=== PATIENT | female | born 1935 | race African-American/Black ===

== ENCOUNTER 2019-06-23 21:03 | Observation (INO) ==
--- NOTE | 2019-06-23 21:35 | PROVIDER DOCUMENTATION ---
This chart was entered by Jessica Figueroa Scribe, acting as scribe for Roland Black MD. HPI-Neurological Disorder - General Chief Complaint: STROKE ALERT Stated Complaint: STROKE LIKE FEELING Time Seen by Provider: 06/23/19 21:19 Source: patient Allergies/Adverse Reactions: Patient Allergies Allergy/AdvReac Type Severity Reaction Status Date / Time No Known Allergies Allergy Verified 07/09/15 11:29 Home Medications: Home Medication List Medication Instructions Recorded Confirmed Last Taken Type Acetaminophen with Codeine 1 tab PO Q6-8H PRN PRN 04/26/15 11/17/17 Unknown History [Tylenol with Codeine #3] Hydrocodone/Ibuprofen 1 tab PO Q4-6H PRN PRN 04/26/15 11/17/17 Unknown History [Hydrocodone-Ibuprofen 7.5-200] Insulin Detemir [Levemir Flextouch] 18 units SQ HS 04/26/15 07/09/15 Unknown History Insulin Glargine,Hum.rec.anlog 18 units SQ BID 04/26/15 07/09/15 11/17/17 01:00 History [Lantus Solostar] LISINOpril [Prinivil] 40 mg PO DAILY 04/26/15 11/17/17 Unknown History Metoprolol Tartrate 25 mg PO BID 04/26/15 11/17/17 Unknown History Omeprazole 20 mg PO DAILY 04/26/15 11/17/17 Unknown History Amlodipine Besylate 1 tab PO DAILY 11/17/17 11/17/17 Unknown History Aspirin 1 tab PO DAILY 11/17/17 11/17/17 Unknown History Clonidine HCl 0.1 mg PO TID PRN #60 tablet 11/17/17 Unknown Rx PRAVAstatin [Pravachol] 1 tab PO DAILY 11/17/17 11/17/17 Unknown History Trazodone [Desyrel] 25 mg PO HS 11/17/17 11/17/17 Unknown History - History of Present Illness-Neuro Nature of Presenting Problem: PT IS AN 83 BF WITH HISTORY OF DIABETES PRESENTING W/FAMILY W/CC SUDDEN ONSET OF INABILTy TO TALK OR 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 SYMPTOMS RESOLVED ON ARRIVAL AND PT IS ALERT AND ORIENTED TO PERSON,PLACE, AND TIME. FOLLOWED BY DR. KILPATRICK.PATIENT IS NONSMOKER, NO ALCOHOL OR DRUG USE. CURRENT NIH SCORE OF 0. Severity: reports: moderate Onset/Duration: reports: just prior to arrival Timing: reports: still present Context: reports: impaired speech, other Character of Altered Mental Status: reports: N/A Any recent trauma/injury?: reports: none Character of Deficits: reports: impaired speech, decreased ability to walk New weakness or altered sensation location:: reports: RLE, LLE Cognitive Baseline: alert, oriented x3 Gait Baseline: walks without assistance Associated Symptoms: reports: weakness, other (RHINORRHEA) Review of Systems - Adult - REVIEW OF SYSTEMS - ADULT Constitutional: reports: no symptoms reported. denies: fever, fatique, night sweats Eyes: reports: no symptoms reported Ears, Nose, Mouth & Throat: reports: see HPI, sinus problem (RHINORRHEA). denies: ear discharge, ear pain, hearing loss Cardiovascular: reports: no symptoms reported Respiratory: reports: no symptoms reported Gastrointestinal: reports: no symptoms reported Genitourinary: reports: no symptoms reported Musculoskeletal: reports: see HPI, muscle weakness Integumentary: reports: no symptoms reported Neurological: reports: see HPI, other (UNABLE TO SPEAK OR AMBULATE). denies: dizziness/vertigo, headache/migraines, numbness Psychiatric: reports: no symptoms reported Endocrine: reports: no symptoms reported Hematologic/Lymphatic: reports: no symptoms reported Allergic/Immunologic: reports: no symptoms reported All Other Systems: Reviewed and Negative Past History - Adult - PAST MEDICAL HISTORY-ADULT Review of Records: reports: Nursing Assessment Review, Medications Reviewed, Social history reviewed & non-contributory. Major Childhood Illnesses: reports: denies history Cardiovascular: reports: HTN Respiratory: reports: denies history Gastrointestinal: reports: denies history Obstetrical/Gynecological: reports: denies history Genitourinary: reports: denies history Musculoskeletal: reports: denies history Neurological: reports: denies history Endocrine/Immune: reports: Diabetes Other Conditions: reports: denies history - PRIOR SURGERIES/PROCEDURES Surgical/Procedure History: reports: joint replacement (total hip) - PRIOR HOSPITALIZATIONS Prior Hospitalizations: reports: none - IMMUNIZATION STATUS Childhood Immunizations: See Nurse Assessment Flu Vaccine: See Nurse Assessment - FAMILY HISTORY Family History: reviewed, not pertinent - SOCIAL HISTORY Smoking: non-smoker Substance Use: none/never Physical Exam- Neurological - Physical Exam-Neuro Initial Vital Signs Reviewed: Yes General Appearance: appears well, alert, no apparent distress. negative: cachetic, slow to respond, obtunded Eye Exam: bilateral eye: normal inspection, PERRL, EOMI HENMT: normocephalic/atraumatic, moist mucous membranes, other (NASAL CONGESTION). negative: normal ENT inspection, pharyngeal erythema, tonsillar exudate, TM abnormal, TM obscurred by cerumen Head Injury: no evidence of injury. 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 negative: facial asymmetry, facial droop, facial paresthesias Motor/Sensory: no motor deficit, no sensory deficit, no pronator drift. 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 negative: facial droop, focal weakness, motor weakness, sensory deficit Integumentary: normal color, normal turgor, warm/dry Psych/Mental Status: normal mood/affect, normal thought content, normal thought process, oriented x 3 - Glascow Coma Scale Best Eye Response: (4) open spontaneously Best Verbal Response: (5) oriented Best Motor Response: (6) obeys commands Total Glascow Score: 15 Progress - PLAN OF CARE/RESULTS Progress/Plan/Lab Results: Vital Signs - 8 hr 06/23/19 21:05 06/23/19 22:05 Temperature 98.7 F 98.7 F Pulse Rate 88 77 Respiratory Rate 20 11 L Blood Pressure 131/71 156/88 O2 Sat by Pulse Oximetry 94 L 94 L Laboratory Results - last 24 hr 06/23/19 06/23/19 06/23/19 21:22 21:30 21:30 WBC 15.99 H RBC 5.03 Hgb 12.9 Hct 40.2 MCV 79.9 L MCH 25.6 L MCHC 32.1 L RDW Std Deviation 14.6 H Plt Count 198 MPV 12.6 H Immature Gran % (Auto) 0.3 Neut % (Auto) 88.8 H Lymph % (Auto) 7.3 L [place] % (Auto) 3.4 Eos % (Auto) 0.1 Baso % (Auto) 0.1 Immature Gran # (Auto) 0.05 H Neut # (Auto) 14.20 H Lymph # (Auto) 1.17 L [place] # (Auto) 0.54 Eos # (Auto) 0.01 Baso # (Auto) 0.02 PT INR PTT (Actin FS) Sodium 138 Potassium 4.8 D Chloride 101 Carbon Dioxide 22 L Anion Gap 16 BUN 25 H Creatinine 1.1 H Estimated GFR/1.73 m2 48 BUN/Creatinine Ratio 23 Glucose 326 H D POC Glucose 265 H D Calculated Osmolality 293 Calcium 8.6 L Total Bilirubin 0.30 AST 18 ALT 19 Alkaline Phosphatase 98 Troponin T High Sens Total Protein 7.2 Albumin 4.1 Globulin 3.0 Albumin/Globulin Ratio 1.0 Urine Source Urine Color Urine Turbidity Urine pH Ur Specific [place] Urine Protein Ur Glucose (Stick) Ur Ketones (Stick) Urine Blood Urine Nitrite Urine Bilirubin Urobilinogen Dipstick Urine Leukocytes Urine WBC (Auto) Urine RBC (Auto) U Epithel Cells (Auto) Urine Bacteria (Auto) Urine Opiates Screen Ur Oxycodone Screen Urine Methadone Screen U Propoxyphene Qual Ur Barbituates Screen Ur Tricyclics Screen Ur Phencyclidine Scrn Ur Amphetamines Screen U Methamphetamines Scrn U Benzodiazepines Scrn Urine Cocaine Screen U Cannabinoids Screen Influenza A (Rapid) Influenza B (Rapid) 06/23/19 06/23/19 06/23/19 21:30 21:30 21:30 WBC RBC Hgb Hct MCV MCH MCHC RDW Std Deviation Plt Count MPV Immature Gran % (Auto) Neut % (Auto) Lymph % (Auto) [place] % (Auto) Eos % (Auto) Baso % (Auto) Immature Gran # (Auto) Neut # (Auto) Lymph # (Auto) [place] # (Auto) Eos # (Auto) Baso # (Auto) PT 13.6 INR 0.99 PTT (Actin FS) 28.2 Sodium Potassium Chloride Carbon Dioxide Anion Gap BUN Creatinine Estimated GFR/1.73 m2 BUN/Creatinine Ratio Glucose POC Glucose Calculated Osmolality Calcium Total Bilirubin AST ALT Alkaline Phosphatase Troponin T High Sens 32 H Total Protein Albumin Globulin Albumin/Globulin Ratio Urine Source Urine Color Urine Turbidity Urine pH Ur Specific [place] Urine Protein Ur Glucose (Stick) Ur Ketones (Stick) Urine Blood Urine Nitrite Urine Bilirubin Urobilinogen Dipstick Urine Leukocytes Urine WBC (Auto) Urine RBC (Auto) U Epithel Cells (Auto) Urine Bacteria (Auto) Urine Opiates Screen Ur Oxycodone Screen Urine Methadone Screen U Propoxyphene Qual Ur Barbituates Screen Ur Tricyclics Screen Ur Phencyclidine Scrn Ur Amphetamines Screen U Methamphetamines Scrn U Benzodiazepines Scrn Urine Cocaine Screen U Cannabinoids Screen Influenza A (Rapid) NEGATIVE Influenza B (Rapid) NEGATIVE 06/23/19 06/23/19 21:58 21:58 WBC RBC Hgb Hct MCV MCH MCHC RDW Std Deviation Plt Count MPV Immature Gran % (Auto) Neut % (Auto) Lymph % (Auto) [place] % (Auto) Eos % (Auto) Baso % (Auto) Immature Gran # (Auto) Neut # (Auto) Lymph # (Auto) [place] # (Auto) Eos # (Auto) Baso # (Auto) PT INR PTT (Actin FS) Sodium Potassium Chloride Carbon Dioxide Anion Gap BUN Creatinine Estimated GFR/1.73 m2 BUN/Creatinine Ratio Glucose POC Glucose Calculated Osmolality Calcium Total Bilirubin AST ALT Alkaline Phosphatase Troponin T High Sens Total Protein Albumin Globulin Albumin/Globulin Ratio Urine Source CATH Urine Color YELLOW Urine Turbidity CLEAR Urine pH 5.5 Ur Specific [place] 1.015 Urine Protein 70 A Ur Glucose (Stick) 300 A Ur Ketones (Stick) NEGATIVE Urine Blood NEGATIVE Urine Nitrite NEGATIVE Urine Bilirubin NEGATIVE Urobilinogen Dipstick NORMAL Urine Leukocytes NEGATIVE Urine WBC (Auto) <10 Urine RBC (Auto) <10 U Epithel Cells (Auto) <10 Urine Bacteria (Auto) NEGATIVE Urine Opiates Screen PRESUMPTIVE POSITIVE A Ur Oxycodone Screen NONE DETECTED Urine Methadone Screen NONE DETECTED U Propoxyphene Qual NONE DETECTED Ur Barbituates Screen NONE DETECTED Ur Tricyclics Screen NONE DETECTED Ur Phencyclidine Scrn NONE DETECTED Ur Amphetamines Screen NONE DETECTED U Methamphetamines Scrn NONE DETECTED U Benzodiazepines Scrn NONE DETECTED Urine Cocaine Screen NONE DETECTED U Cannabinoids Screen NONE DETECTED Influenza A (Rapid) Influenza B (Rapid) Orders Category Date Time Status Admit - [facility] Routine AdmDCTranf 06/23/19 22:35 Active Activity - Strict Bedrest ORDERED Care 06/23/19 22:35 Active Cardiac Monitoring DIRECTED Care 06/23/19 21:19 Active FSBS/Accucheck Result NOW Care 06/23/19 21:28 Active Finger Stick Blood Sugar (ED) DIRECTED Care 06/23/19 21:19 Active Neurological Check Q4H Care 06/23/19 22:38 Active Oxygen Therapy- ED Nursing DIRECTED Care 06/23/19 21:19 Active Resuscitation Status Routine Care 06/23/19 22:35 Ordered Saline Loc NOW Care 06/23/19 21:19 Active Vital Signs Order Q 4-HR ASSESS Care 06/23/19 22:35 Active Z-Document. for Tele Applied ORDERED Care 06/23/19 22:36 Active NPO Diet 06/23/19 22:38 Active CHEST-PORTABLE [RAD] Stat Exams 06/23/19 21:[address] HEAD W/O CONTRAST [CT] Stat Exams 06/23/19 21:19 Completed CBC WITH ELECTRONIC DIFF [HEME] Stat Lab 06/23/19 21:30 Completed COMPREHENSIVE METABOLIC PANEL [CHEM] Stat Lab 06/23/19 21:[address] Stat Lab 06/23/19 21:30 Completed PROTIME WITH INR [COAG] Stat Lab 06/23/19 21:30 Completed PTT [COAG] Stat Lab 06/23/19 21:30 Completed TROPONIN T HIGH SENSITIVITY Stat Lab 06/23/19 21:30 Completed URINALYSIS W/POSS RFLX CULT [URINALYSIS] Stat Lab 06/23/19 21:58 Completed URINE DRUG SCREEN PL Stat Lab 06/23/19 21:58 Completed 0.9% Sodium Chloride Inj [Ns] 1,000 ml Med 06/23/19 22:39 Active IV 100 mls/hr Aspirin Med 06/23/19 22:32 Discontinued 81 mg PO NOW ONE CefTRIAXONE [Rocephin] 1 gm Med 06/23/19 22:40 Active 0.9% Sodium Chloride Inj [Ns] 50 ml IV NOW Insulin Human Regular (Primrose [Humulin R (Primrose)] Med 06/23/19 22:39 Discontinued See Protocol SUBQ NOW ONE Oxygen Device Routine Oth 06/23/19 22:38 Active Telemetry [OM.EQ] Routine Oth 06/23/19 22:35 Active EKG [EKG] Stat Ther 06/23/19 21:19 Ordered Transfer/Admit Order [TRANSFER] Routine Transfer 06/23/19 22:38 Ordered Result Diagrams: 06/23/19 21:30 06/23/19 21:30 - XRAY 1 XRAY Study: Chest Impression: See EMR Report ( EXAM: CHEST-PORTABLE HISTORY: possible CVA TECHNIQUE: Single view COMPARISON: 06/22/2019 FINDINGS: The lungs are well expanded. The heart is not enlarged. The vessels are not distended. There are no infiltrates. No effusion identified. IMPRESSION: Negative exam.) XRAY Interpretation: NAD - CT/MRI 1 CT Study: Head Impression: See EMR Report ( EXAM: CT HEAD W/O CONTRAST HISTORY: possible CVA TECHNIQUE: CT head without contrast COMPARISON: 10/17/2015 FINDINGS: No parenchymal hemorrhage. No epidural or subdural hematoma. No subarachnoid hemorrhage. There is atrophy with chronic microvascular ischemic changes. No mass identified on this noncontrasted exam. No hydrocephalus. No sinus opacification. IMPRESSION: 1.No hemorrhage 2.Atrophy 3.Chronic microvascular ischemic changes This exam was performed using automated exposure control, adjustment of mA or kV according to patient size, and/or use of iterative reconstruction technique. Electronically signed by Jonathan Al 06/23/2019 10:10 PM) CT Results: NAD - CONSULTS/PCP/HOSPITALIST Notification #1 *Consult/PCP/Hospitalist*: DR. MONSON, HOSPITALIST Time Discussed: 22:30 Consult Disposition: Admit Departure - Departure Date of Disposition Decision: 06/23/19 Time of Disposition Decision: 22:31 DIAGNOSIS: TIA (transient ischemic attack) Leukocytosis Qualifiers: Leukocytosis type: unspecified Qualified Code(s): D72.829 - Elevated white blood cell count, unspecified Uncontrolled diabetes mellitus Qualifiers: Diabetes mellitus type: type 2 Glycemic state: with hyperglycemia Qualified Code(s): E11.65 - Type 2 diabetes mellitus with hyperglycemia Disposition: ADMITTED INPATIENT 09 Certified Medical Emergency: Emergent Condition: Stable Referrals and Follow-Ups: None,PCP [Primary Care Provider] - - Critical Care Note This patient required my direct & personal management of CC.: No Attestation - Physician/ NORAH Attestation Patient care was provided by Advanced Practice Provider:: No The physician spent face to face time with patient:: Yes Advanced Practice Provider documentation review:: Supervising physician onsite and consulted in the evaluation and care of this patient. The physician did have a face to face encounter with the patient. - NIH Stroke Scale NIH Type: Initial Evaluation Level of Consciousness: 0-Alert LOC Questions (ask month and age): 0-Answers Both Correctly LOC Commands (ask to open & close eyes;make a fist, let go): 0-Obeys Both Correctly Best Gaze (horizontal eye movement): 0-Normal Visual (use finger movement, counting or visual threat): 0-No Visual Loss Facial Palsy (show teeth or raise eyebrows & close eyes tght: 0-Symmetrical Movement Motor Function-left arm: 0-Normal Motor Function-right arm: 0-Normal Motor Function-left le-Normal Motor Function-right le-Normal Limb Ataxia(yuytcc-[id number], or heel to cruz): 0-No Ataxia Sensory(pin prick to face,arms,trunk,legs-compare side/side): 0-No Ataxia Best Language(name item/read sentence.Ex-Down to Earth): 0-No Aphasia Dysarthria(Pt read words or say words Ex.Mama,Tip-Top,Thanks: 0-Normal Articulation Extinction and Inattention: 0-Normal NIH Total Score: 0 Modified Shira Score Criteria: 0-no symptoms This chart was documented by the indicated scribe, (Jessica Figueroa, Scribe) and accurately reflects the services I performed and decisions made by me, Roland Black MD, as attested by the provider's signature.
[2019-06-23 21:57] LABS: ALBUMIN 4.1 g/dL (3.5-5.0); CALCIUM 8.6 mg/dL (8.8-10.2); CREATININE 1.1 mg/dL (0.5-0.9); POTASSIUM 4.8 mmol/L (3.5-5.1); TOTAL BILIRUBIN 0.3 mg/dL (0.20-1.00); TOTAL PROTEIN 7.2 g/dL (6.3-8.3)
[2019-06-23 22:02] LABS: INR 0.99; PROTIME 13.6 Seconds (11.0-16.0)
[2019-06-23 22:03] LABS: BASO# 0.02 X1000 (0.0-0.2); BASO% 0.1 % (0.0-0.8); EOS# 0.01 X1000 (0.0-0.7); EOS% 0.1 % (0.0-10.0); HEMATOCRIT 40.2 % (37.0-47.0); HEMOGLOBIN 12.9 g/dL (12.0-16.0); IMM GRAN# 0.05 X1000 (0.0-0.04); IMM GRAN% 0.3 % (0.0-0.5); LYMPH# 1.17 X1000 (1.2-3.4); LYMPH% 7.3 % (20.5-51.1); MCH 25.6 PG (27-31); MCHC 32.1 g/dL (33-37); MCV 79.9 FL (81-99); MONO# 0.54 X1000 (0.11-0.59); MONO% 3.4 % (1.7-9.3); MPV 12.6 FL (7.4-10.4); NEUT% 88.8 % (42.2-75.2); PLT 198 X1000 (130-400); PTT 28.2 Seconds (22.3-41.8); RBC 5.03 XMIL (4.2-5.4); RDW 14.6 % (11.5-14.5); WBC 15.99 X1000 (4.8-10.8)
--- NOTE | 2019-06-23 22:03 | Diag Imaging Result Doc PS360 ---
EXAM: CHEST-PORTABLE HISTORY: possible CVA TECHNIQUE: Single view COMPARISON: 06/22/2019 FINDINGS: The lungs are well expanded. The heart is not enlarged. The vessels are not distended. There are no infiltrates. No effusion identified. IMPRESSION: Negative exam. Electronically signed by Jonathan Al 06/23/2019 10:01 PM
[2019-06-23 22:06] LABS: URINE SOURCE CATH
[2019-06-23 22:09] LABS: BILIRUBIN URINE NEGATIVE (NEGATIVE); BLOOD URINE NEGATIVE (NEGATIVE); COLOR YELLOW; GLUCOSE URINE 300 mg/dL (NEGATIVE); KETONE URINE NEGATIVE (NEGATIVE); LEUKOCYTES URINE NEGATIVE (NEGATIVE); NITRITE URINE NEGATIVE (NEGATIVE); PH URINE 5.5; PROTEIN URINE 70 mg/dL (NEGATIVE); SP GRAVITY URINE 1.015; TURBIDITY URINE CLEAR (CLEAR); UROBILINOGEN URINE NORMAL (NORMAL)
[2019-06-23 22:11] LABS: UR EPITHELIAL CELLS <10 /HPF (<10); URINE BACTERIA NEGATIVE /HPF; URINE RBC <10 /HPF (<10); URINE WBC <10 /HPF (<10)
--- NOTE | 2019-06-23 22:12 | Diag Imaging Result Doc PS360 ---
EXAM: CT HEAD W/O CONTRAST HISTORY: possible CVA TECHNIQUE: CT head without contrast COMPARISON: 10/17/2015 FINDINGS: No parenchymal hemorrhage. No epidural or subdural hematoma. No subarachnoid hemorrhage. There is atrophy with chronic microvascular ischemic changes. No mass identified on this noncontrasted exam. No hydrocephalus. No sinus opacification. IMPRESSION: 1.No hemorrhage 2.Atrophy 3.Chronic microvascular ischemic changes This exam was performed using automated exposure control, adjustment of mA or kV according to patient size, and/or use of iterative reconstruction technique. Electronically signed by Jonathan Al 06/23/2019 10:10 PM
[2019-06-23 22:17] LABS: INFLUENZA A NEGATIVE (NEGATIVE); INFLUENZA B NEGATIVE (NEGATIVE)
[2019-06-23 22:22] LABS: UR AMPHETAMINES QUAL NONE DETECTED (NONE DETECT); UR BARBITUATES QUAL NONE DETECTED (NONE DETECT); UR BENZODIAZEPIN QUAL NONE DETECTED (NONE DETECT); UR CANNABINOIDS QUAL NONE DETECTED (NONE DETECT); UR COCAINE QUAL NONE DETECTED (NONE DETECT); UR METHADONE QUAL NONE DETECTED (NONE DETECT); UR METHAMPHETAMINE QUAL NONE DETECTED (NONE DETECT); UR OPIATES QUAL PRESUMPTIVE POSITIVE (NONE DETECT); UR OXYCODONE QUAL NONE DETECTED (NONE DETECT); UR PCP QUAL NONE DETECTED (NONE DETECT); UR PROPOXYPHENE QUAL NONE DETECTED (NONE DETECT); UR TCA QUAL NONE DETECTED (NONE DETECT)
[2019-06-23] MEDS ORDERED: ASPIRIN PO ONE (22:32)
[2019-06-23] MEDS ORDERED: HUMULIN R (PARKWAY) SUBQ ONE (22:39)
[2019-06-23] MEDS ORDERED: NS 1,000 ML IV ONE (22:39)
[2019-06-23] MEDS ORDERED: ROCEPHIN 1 GM in NS 50 ML IV ONE (22:40)
[2019-06-24 12:29] VITALS: BP 159/85
--- NOTE | 2019-06-24 21:57 | HISTORY AND PHYSICAL ---
CHIEF COMPLAINT: Left upper extremity weakness. HISTORY OF PRESENT ILLNESS: Patient is an 83-year-old female who presented to the hospital with sudden onset of inability to talk or move either of her upper extremities on admission. Notes that all of her symptoms have resolved at present time. ALLERGIES: No known drug allergies. MEDICATIONS: Do not have an active medication list, although she does have Pravachol, metoprolol, amlodipine, and insulin. PAST MEDICAL HISTORY: Diabetes, hypertension, high cholesterol. REVIEW OF SYSTEMS: As noted above. Patient notes that she got choked while eating, creating her difficulty moving any of her upper extremities. States that she chronically has difficulty moving her lower extremities. FAMILY HISTORY: Noncontributory. SOCIAL HISTORY: No smoking or drinking. Lives at home, cared for by her family. PHYSICAL EXAMINATION: VITAL SIGNS: Reviewed. Temperature 98 degrees, pulse 88, respiratory 20, BP 131/71, saturation 94% on room air. GENERAL: Patient is awake, pleasant. She is in no distress. HEENT: Normocephalic. NECK: Supple. CARDIOVASCULAR: Regular rate. CHEST: Clear. ABDOMEN: Soft. EXTREMITIES: Moves all extremities. NEUROLOGIC: No changes. ASSESSMENT: 1. Acute choking spell. 2. Dysphagia, resolved. 3. Hypertension. 4. Diabetes. 5. High cholesterol. PLAN: Overall, the patient is better. We are going to admit her for observation, will follow and we will allow her to eat. cc: Mike Kwong MD
--- NOTE | 2019-06-24 22:14 | DISCHARGE SUMMARY ---
ADMISSION DATE: 06/24/2019 DISCHARGE DATE: 06/24/2019 DISCHARGE DIAGNOSES: 1. Acute asthma, resolved. 2. Diabetes. 3. Hypertension. 4. High cholesterol. 5. Acute neurologic event secondary to her choking spell, completely resolved. CONSULTATIONS: None. PROCEDURES: None. BRIEF HOSPITAL COURSE: Patient is a very pleasant 83-year-old female who presented to the hospital after having a choking spell at home. Notes overall symptoms have resolved. She is feeling better. She was able to eat without any difficulty and she would like to go home. cc: Mike Kwong MD
== END 2019-06-24 12:52 | disposition home or self-care (01) ==
LOC: P.EDIPHOLD 21:03 → P.ED 21:03 → P.MEDSURG 06-24 08:55 → P.EDIPHOLD 06-24 12:54
PROVIDERS: ATTEND Family Medicine